=== PATIENT | female | born 1955 | race Caucasian/White ===

== ENCOUNTER → 2016-09-10 | Outpatient (CLI) | payer OTHER | LOC: RAD 13:25 | DX: J98.4 Other disorders of lung (principal); J98.6 Disorders of diaphragm ==

== ENCOUNTER → 2018-09-05 | Outpatient (CLI) | payer OTHER | LOC: CATH 07:45 | DX: Z13.6 Encounter for screening for cardiovascular disorders (principal); E78.00 Pure hypercholesterolemia, unspecified ==